=== PATIENT | male | born 1935 | race Caucasian/White ===

== ENCOUNTER 2019-02-08 16:55 | Inpatient (IN) | payer MEDICARE, MEDICAID ==
[~2019-02-08] VITALS: Ht 170.2 cm; Wt 77.1 kg
--- NOTE | 2019-02-08 16:25 | NUR ---
RECEIVED REPORT FROM PAULA GALARZA, FOR JAVIER. Addendum: 02/08/19 at 2222 by JOHN MORE RN TIME CLARIFICATION: RECEIVED REPORT AT 2024
--- NOTE | 2019-02-08 17:00 | NUR ---
BIBRA FOR L SIDED SHARP CHEST PAIN THIS 2PM. NON-RADIATING. GIVEN 81MG ASPIRIN x 4 EN ROUTE. DENIES PAIN WHEN BROUGHT IN ED. TO ER BED 8, HOOKED TO MONITOR, CHANGED TO GOWN, PROVIDED W WARM BLANKET, AWAITING MD ROJAS.
[2019-02-08] MEDS ORDERED: CLOP75TA15 PO (17:09)
[2019-02-08] MEDS ORDERED: TERA5CAP4 PO (17:09)
--- NOTE | 2019-02-08 17:48 | NUR ---
DR PANTOJA AT BEDSIDE
[2019-02-08 17:59] LABS: BASOPHILS % (AUTO) 0.3 % (0.0-2.0); EOSINOPHILS % (AUTO) 2.1 % (0.0-6.0); HEMATOCRIT 39 % (39-51); HEMOGLOBIN 13.3 g/dL (13.5-17.5); LYMPHOCYTES # (AUTO) 2.1 /CMM (0.8-4.8); LYMPHOCYTES % (AUTO) 26.4 % (20.0-44.0); MEAN CORPUSCULAR HGB CONC 34 g/dl (31.0-36.0); MEAN CORPUSCULAR VOLUME 95 fL (80-96); MONOCYTES # (AUTO) 0.6 /CMM (0.1-1.30); NEUTROPHILS % (AUTO) 63.2 % (43.0-81.0); PLATELET COUNT (AUTO) 171 /CMM (150-450); RED BLOOD CELL COUNT(AUTO) 4.12 MIL/uL (4.5-6.0)
[2019-02-08 18:09] LABS: CALCIUM, SERUM 8.9 mg/dL (8.5-10.1); CARBON DIOXIDE 29 mmol/L (21-32); CHLORIDE 106 mmol/L (98-107); GLUCOSE 80 mg/dL (74-106); POTASSIUM 4.1 mmol/L (3.5-5.1); SODIUM SERUM 141 mmol/L (136-145); UREA NITROGEN, BLOOD 14 mg/dL (7-18)
[2019-02-08 18:22] LABS: ALANINE AMINOTRANSFERASE 38 U/L (12-78); ALBUMIN 3.3 g/dL (3.4-5.0); ALKALINE PHOSPHATASE 72 U/L (46-116); ASPARTATE AMINOTRANSFERASE 27 U/L (15-37); B-TYPE NATRIURETIC PEPTIDE 152 PG/ML (0-125); BILIRUBIN,DIRECT 0.1 mg/dL (0.0-0.2); BILIRUBIN,TOTAL 0.3 mg/dL (0.2-1.0); TOTAL PROTEIN, SERUM 6.4 g/dL (6.4-8.2)
--- NOTE | 2019-02-08 18:25 | NUR ---
PT WOULD LIKE TO SPEAK W BEFORE XRAY. MADE AWARE
--- NOTE | 2019-02-08 18:54 | NUR ---
PT AGREED FOR XRAY. MADE RAD DEPT AWARE
--- NOTE | 2019-02-08 20:02 | NUR ---
Patient is resting comfortably in bed with FAMILY AT BEDSIDE. VSS. ALL NEEDS MET AT THIS TIME.
--- NOTE | 2019-02-08 20:25 | NUR ---
REPORT GIVEN TO PRANAV LOPEZ FOR JAVIER
[2019-02-08] MEDS ORDERED: IV NS 0.9% 1,000 ML IV PRN (20:55)
[2019-02-08] MEDS ORDERED: ONDANSETRON HCL/PF 4 MG/2 ML VIAL IVP PRN (21:00)
[2019-02-08] MEDS ORDERED: MAG HYDROX/AL HYDROX/SIMETH 30 ML UDC PO PRN (21:00)
[2019-02-08] MEDS ORDERED: ACETAMINOPHEN 325 MG TABLET PO PRN (21:00)
[2019-02-08] MEDS ORDERED: MAGNESIUM HYDROXIDE 30 ML UDC PO PRN (21:00)
[2019-02-08] MEDS ORDERED: HYDROCODONE/APAP 5/325MG 1 EACH TABLET PO PRN (21:00)
[2019-02-08] MEDS ORDERED: TEMAZEPAM 7.5 MG CAPSULE PO PRN (21:00)
[2019-02-08] MEDS ORDERED: MORPHINE SULFATE INJ 2 MG/ML DISP.SYRIN IV PRN (21:00)
[2019-02-08] MEDS ORDERED: NITROGLYCERIN 0.4 MG/TAB BOTTLE SL ONE (22:30)
--- NOTE | 2019-02-08 22:50 | NUR ---
WASHHOUSE HAND OPENING NOTES RECEIVED PATIENT VIA GURNEY FROM ED. FAMILY AT BEDSIDE. PATIENT A/O X3, AFEBRILE. RESPIRATIONS ARE EVEN AND UNLABORED, NOT IN ANY ACUTE DISTRESS NOTED. DENIES CHEST PAIN AND ANY SOB. ON RA, TOLERATING WELL. IV SITE R HAND 18G INTACT, NO INFILTRATION NOTED. DRESSING KEPT CLEAN AND DRY. SAFETY MEASURES ARE IN PLACE. REMINDED PT TO USE CALL LIGHT WHEN ASSISTANCE IS NEEDED, CALL LIGHT IS WITHIN REACH. WILL CONT TO MONITOR PT.
[2019-02-08 22:58] VITALS: BP 132/66
--- NOTE | 2019-02-08 23:05 | NUR ---
CASER SHOE PARTS NOTES NON ADMINISTERED NITROGLYCERIN DUE TO PATIENT'S RHYTHM SINUS CASANDRA WITH HR 50. PT STATED NO PAIN AT THIS TIME. WILL CONT TO MONITOR PT.
[2019-02-09] VITALS: BP 133/71
[2019-02-09 04:00] VITALS: BP 109/62
[2019-02-09 06:18] LABS: BASOPHILS % (AUTO) 0.3 % (0.0-2.0); HEMATOCRIT 41 % (39-51); HEMOGLOBIN 13.6 g/dL (13.5-17.5); LYMPHOCYTES # (AUTO) 1.8 /CMM (0.8-4.8); LYMPHOCYTES % (AUTO) 29.8 % (20.0-44.0); MEAN CORPUSCULAR HGB CONC 33 g/dl (31.0-36.0); MEAN CORPUSCULAR VOLUME 93 fL (80-96); MONOCYTES # (AUTO) 0.5 /CMM (0.1-1.30); MONOCYTES % (AUTO) 8.8 % (2.0-12.0); NEUTROPHILS # (AUTO) 3.5 /CMM (1.8-8.9); NEUTROPHILS % (AUTO) 57.1 % (43.0-81.0); PLATELET COUNT (AUTO) 168 /CMM (150-450); RED BLOOD CELL COUNT(AUTO) 4.36 MIL/uL (4.5-6.0); WHITE BLOOD COUNT (AUTO) 6.1 K/uL (4.3-11.0)
[2019-02-09 06:43] LABS: CHOLESTEROL 188 mg/dL (<200); HDL CHOLESTEROL 43 mg/dL (40-60); LDL 124 mg/dL (0-99); THYROID STIMULATING HORMONE 2.079 uIU/mL (0.358-3.74); TRIGLYCERIDES 102 mg/dL (30-150)
[2019-02-09 06:48] LABS: CALCIUM, SERUM 9.1 mg/dL (8.5-10.1); CARBON DIOXIDE 23 mmol/L (21-32); CHLORIDE 111 mmol/L (98-107); CREATININE 0.8 mg/dL (0.6-1.3); GLUCOSE 93 mg/dL (74-106); MAGNESIUM 2.2 mg/dL (1.8-2.4); PHOSPHORUS 3.7 mg/dL (2.5-4.9); POTASSIUM 3.9 mmol/L (3.5-5.1); SODIUM SERUM 145 mmol/L (136-145); UREA NITROGEN, BLOOD 12 mg/dL (7-18)
[2019-02-09 06:48] LABS: APPEARANCE,URINE CLEAR (CLEAR); BILIRUBIN,URINE NEGATIVE (NEGATIVE); BLOOD, URINE NEGATIVE Ery/uL (NEGATIVE); COLOR,URINE YELLOW (YELLOW); KETONES,URINE NEGATIVE (NEGATIVE); LEUKOCYTE ESTERASE ,URINE NEGATIVE (NEGATIVE); NITRITE, URINE NEGATIVE (NEGATIVE); PH,URINE 6.5 (5.0-8.0); PROTEIN,URINE NEGATIVE (NEGATIVE); UGLUCOSE NEGATIVE (NEGATIVE); UROBILINOGEN,URINE 0.2 EU/dL (0.2)
--- NOTE | 2019-02-09 07:20 | NUR ---
SENIOR RESERVATIONS AGENT CLOSING NOTES PATIENT RESTING IN BED. A/O X3, AFEBRILE. RESPIRATIONS ARE EVEN AND UNLABORED, NOT IN ANY ACUTE DISTRESS NOTED. DENIES CHEST PAIN AND SOB. ON RA, TOLERATING WELL. IV SITE R HAND 18G INTACT, 0.9% NS RUNNING AT 75ML/HR, TOLERATING WELL, NO INFILTRATION NOTED. DRESSING KEPT CLEAN AND DRY. SAFETY MEASURES IN PLACE. REMINDED PT TO USE CALL LIGHT WHEN ASSISTANCE IS NEEDED, CALL LIGHT IS WITHIN REACH. ALL MD ORDERS ATTENDED. ENDORSED TO DAY SHIFT NURSE FOR JAVIER.
[2019-02-09] MEDS ORDERED: PANTOPRAZOLE 40 MG TABLET.DR PO SCH (07:30)
--- NOTE | 2019-02-09 07:47 | NUR ---
MACHINE BRUSHER NOTES PATIENT RECEIVED RESTING INSIDE ROOM. SLEEPING, EASILY AROUSABLE THROUGH VERBAL AND TACTILE STIMULI. BREATHING EVEN AND UNLABORED. NO ACUTE DISTRESS NOTED AT THIS TIME. NO C/O PAIN OR DISCOMFORT. CONTINUE ON TELEMETRY, ARTIST WOODBLOCK IN PLACE, SB 53 BPM. WILL CONTINUE TO MONITOR. BED LOCKED AND IN LOW POSITION. BILATERAL UPPER SIDE RAILS UP AND LOCKED. CALL LIGHT WITHIN EASY REACH
[2019-02-09 08:00] VITALS: BP 130/78
[2019-02-09] MEDS ORDERED: ASPIRIN 81 MG TAB.CHEW PO SCH (09:00)
[2019-02-09] MEDS ORDERED: TERAZOSIN HCL 5 MG CAPSULE PO SCH (10:30)
[2019-02-09] MEDS ORDERED: CLOPIDOGREL BISULFATE 75 MG TABLET PO SCH (10:30)
[2019-02-09] MEDS ORDERED: ATORVASTATIN 10 MG TABLET PO SCH (10:30)
--- NOTE | 2019-02-09 10:45 | NUR ---
MS RN NOTES PATIENT SEEN AND EXAMINED BY DR SY. WITH NEW ORDER FOR CT ANGIO HEART WITH 3D IMAGING. VERIFIED INFORMED CONSENT OBTAINED BY MD AND WITNESSED BY LICENSED STAFF. RADIOLOGY AWARE. WILL CONTINUE TO MONITOR
[2019-02-09 12:00] VITALS: BP 152/66
--- NOTE | 2019-02-09 12:25 | NUR ---
MS RN NOTES PATIENT LEFT UNIT VIA WHEELCHAIR. TAKEN BY [facility] FOR CT ANGIO [facility] WITH 3D IMAGING. PATIENT LEFT IN STABLE CONDITION. NO ACUTE DISTRESS. NO C/O PAIN OR DISCOMFORT
[2019-02-09] MEDS ORDERED: IV NS 0.9% 250 ML IV ONE (12:34)
[2019-02-09] MEDS ORDERED: IOHEXOL-350 100 ML VIAL IV ONE (12:34)
[2019-02-09] MEDS ORDERED: NITROGLYCERIN 0.4 MG/TAB BOTTLE ONE (12:45)
[2019-02-09] MEDS ORDERED: ATOR10TA PO (13:19)
--- NOTE | 2019-02-09 15:12 | NUR ---
MS RN NOTES PLACED CALL TO RADIOLOGY TO FOLLOW-UP REGARDING CT ANGIO HEART RESULT. WAS RELAYED TO [facility] ([phone]), PLACED CALL AND SPOKE TO TASNEEM, VERBALIZED THEY WILL GET THE READING DONE SOON POSSIBLE.
[2019-02-09 16:00] VITALS: BP 101/58
--- NOTE | 2019-02-09 16:00 | NUR ---
MS RN NOTES PLACED CALL TO DR SY AND MADE AWARE OF CTCA RESULT, VERBALIZED PATIENT IS CLEAR FOR DISCHARGE GIVEN LONG PATIENT HAS NO FURTHER CHEST PAIN. DR SY ALSO SPOKE WITH SON, KELSIE OVER THE PHONE AND EXPLAINED RESULTS. PATIENT AND SON VERBALIZED UNDERSTANDING, VERBALIZED THAT THEY WILL HAVE FOLLOW-UP APPOINTMENT WITH CARDIOLOGY. DR ROACH MADE AWARE, GAVE FOR PATIENT TO BE DISCHARGED
[2019-02-09 16:10] VITALS: BP 101/58
--- NOTE | 2019-02-09 16:25 | NUR ---
MS RN NOTES PATIENT HAS A NEW PRESCRIPTION FOR LIPITOR. PATIENT MADE AWARE, SON KELSIE AT BEDSIDE. PATIENT VERBALIZED THAT HE DOESNT WANT TO HAVE LIPITOR HIS WAS TAKING LIPITOR BEFORE AND HE DOESNT LIKE THE SIDE EFFECTS. RISKS AND BENEFITS EXPLAINED BUT TO NO AVAIL, PATIENT AND SON KELSIE BOTH INSISTED THAT THEY DONT WANT THE PATIENT TO HAVE LIPITOR. SON KELSIE VERBALIZED THAT THEY WILL SPEAK TO THE PATIENT'S ENTOMOLOGY TEACHER, DR WATSON, AND ASK HIM FOR AN ALTERNATIVE MEDICATION. DR ROAHC MADE AWARE
--- NOTE | 2019-02-09 17:35 | NUR ---
MS RN NOTES PATIENT FOR DISCHARGE HOME TODAY. DISCHARGE INSTRUCTIONS AND EDUCATION PROVIDED AND PATIENT AND SON KELSIE VERBALIZED UNDERSTANDING. IV REMOVED WITH MINIMAL BLEEDING NOTED, PRESSURE DRESSING PLACED ON SITE. ALL BELONGINGS COMPLETE ON DISCHARGE, NO REPORT OF MISSING INVENTORY. PATIENT LEFT UNIT AT 1730 IN STABLE CONDITION, AMBULATORY. NO NEW SKIN BREAKDOWN NOTED. ACCOMPANIED BY NURSING STAFF TO PARKING LOT. LEFT HOSPITAL PREMISES VIA PRIVATE CAR WITH SON KELSIE. AWARE
== END 2019-02-09 17:33 | disposition home or self-care (01) | DRG 303 ==
LOC: ER 17:16 → TELE1 21:45 → MEDSG1 02-09 10:07
PROVIDERS: ADMIT Nurse Practitioner Acute Care
DX: I25.10 Atherosclerotic heart disease of native coronary artery without angina pectoris (principal); Z95.5 Presence of coronary angioplasty implant and graft; N40.0 Benign prostatic hyperplasia without lower urinary tract symptoms
CPT/HCPCS: 36415; 71045-TC; 75574; 80048-TC; 80061-TC; 80076-TC; 81000-TC; 83735-TC; 83880; 84100-TC; 84443-TC; 84484-TC; 85025-TC; 87081-TC; 93307-TC; G0378; J7030; J7050; Q9967